=== PATIENT | male | born 2000 | race Caucasian/White ===

== ENCOUNTER 2024-01-14 14:33 | Emergency (ER) | payer MEDICAID, OTHER ==
[~2024-01-14] VITALS: Ht 165.1 cm; Wt 77.0 kg
[2024-01-14] MEDS ORDERED: CYCL-837 PO (19:41)
[2024-01-14] MEDS ORDERED: IBUP-1456 PO (19:41)
[2024-01-14 21:34] VITALS: BP 126/73; PULSE 78; RESP 16; TEMP 98; O2SAT 98
== END 2024-01-14 21:34 | disposition home or self-care (01) ==
LOC: ER 14:33
DX: S29.012A Strain of muscle and tendon of back wall of thorax, initial encounter (principal); S39.012A Strain of muscle, fascia and tendon of lower back, initial encounter; Z87.891 Personal history of nicotine dependence; Z79.899 Other long term (current) drug therapy; V43.61XA Car passenger injured in collision with sport utility vehicle in traffic accident, initial encounter; Y93.89 Activity, other specified; Y92.89 Other specified places as the place of occurrence of the external cause; Y99.8 Other external cause status
CPT/HCPCS: 72070; 72100